=== PATIENT | female | born 1945 | race Caucasian/White ===

== ENCOUNTER → 2020-10-15 | Outpatient (CLI) | payer OTHER, BC ==
[~2020-10-15] MED LIST: ASA81BEC PO; CARDIZEM120 MG PO; COZAAR100 MG PO; HYDROCHLOROTH12.5 M1 PO; LIPITOR 40 MG T40 M1 PO; OXTELLAR XR150 MG PO; OXTELLAR XR300 MG PO; PLAVIX 75 MG TA75 MG PO; TRILEPTAL150 MG PO; ZYRTEC10 M5 PO
== END ==
LOC: SJCVCIMAG 09:31
PROVIDERS: ATTEND Internal Medicine Cardiovascular Disease
DX: I08.8 Other rheumatic multiple valve diseases (principal); I11.9 Hypertensive heart disease without heart failure; R94.31 Abnormal electrocardiogram [ECG] [EKG]; R00.1 Bradycardia, unspecified; R09.89 Other specified symptoms and signs involving the circulatory and respiratory systems; E78.00 Pure hypercholesterolemia, unspecified; Z79.82 Long term (current) use of aspirin; Z79.899 Other long term (current) drug therapy; Z87.891 Personal history of nicotine dependence; Z86.69 Personal history of other diseases of the nervous system and sense organs

== ENCOUNTER → 2020-10-23 | Outpatient (CLI) | payer OTHER, BC | LOC: SJCVCIMAG 09:07 | PROVIDERS: ATTEND Internal Medicine | DX: I65.23 Occlusion and stenosis of bilateral carotid arteries (principal); I73.9 Peripheral vascular disease, unspecified; E78.2 Mixed hyperlipidemia; I10 Essential (primary) hypertension; E78.00 Pure hypercholesterolemia, unspecified; R09.89 Other specified symptoms and signs involving the circulatory and respiratory systems; I35.0 Nonrheumatic aortic (valve) stenosis; I77.9 Disorder of arteries and arterioles, unspecified; Z79.82 Long term (current) use of aspirin; Z79.899 Other long term (current) drug therapy; Z87.891 Personal history of nicotine dependence ==

== ENCOUNTER → 2020-10-27 | Outpatient (CLI) | payer OTHER, BC | LOC: SJCVC 08:53 | PROVIDERS: ATTEND Nuclear Medicine Nuclear Cardiology | DX: I77.9 Disorder of arteries and arterioles, unspecified (principal); E78.00 Pure hypercholesterolemia, unspecified; I10 Essential (primary) hypertension; I35.0 Nonrheumatic aortic (valve) stenosis; E78.5 Hyperlipidemia, unspecified; Z79.82 Long term (current) use of aspirin; Z79.899 Other long term (current) drug therapy ==

== ENCOUNTER 2020-10-29 10:49 | Observation (INO) | payer OTHER, BC ==
[~2020-10-29] VITALS: Ht 167.6 cm; Wt 78.5 kg
[2020-10-29 11:42] VITALS: BP 167/65
[2020-10-29 12:09] LABS: HEMOGLOBIN 14.2 gm/dL (12.0-15.0); MCH 30.3 pg (26.0-34.0); MCHC 33.1 g/dL (28.0-37.0); MCV 91.5 fL (80.0-100.0); RBC 4.7 mil/uL (4.20-5.00); RDW 13.1 % (10.5-14.5)
[2020-10-29] MEDS ORDERED: ASA81BEC PO (12:10)
[2020-10-29] MEDS ORDERED: LIPITOR 40 MG T40 M1 PO (12:10)
[2020-10-29] MEDS ORDERED: ZYRTEC10 M5 PO (12:14)
[2020-10-29] MEDS ORDERED: CARDIZEM120 MG PO (12:15)
[2020-10-29] MEDS ORDERED: HYDROCHLOROTH12.5 M1 PO (12:16)
[2020-10-29] MEDS ORDERED: COZAAR100 MG PO (12:17)
[2020-10-29 12:18] LABS: CALCIUM 9.1 mg/dL (8.5-10.1); CREATININE 0.8 mg/dL (0.6-1.0); POTASSIUM 3.9 mmol/L (3.5-5.1)
[2020-10-29] MEDS ORDERED: TRILEPTAL150 MG PO (12:27)
[2020-10-29] MEDS ORDERED: OXTELLAR XR300 MG PO ×2 (12:28→12:30)
[2020-10-29] MEDS ORDERED: OXTELLAR XR150 MG PO (12:29)
[2020-10-29 15:55] LABS: ABSOLUTE NEUTROPHILS 5.4 thou/uL (1.4-8.2); BASOPHILS 0.6 % (0.0-2.0); EOSINOPHILS 2.1 % (0.0-3.0); HEMATOCRIT 38.6 % (37.0-47.0); HEMOGLOBIN 12.9 gm/dL (12.0-15.0); LYMPHOCYTES 17.7 % (24.0-44.0); MCH 30.5 pg (26.0-34.0); MCHC 33.3 g/dL (28.0-37.0); MCV 91.6 fL (80.0-100.0); MONOCYTES 6.2 % (1.0-8.0); PLATELET COUNT 184 thou/uL (150-400); POLYS 73.4 % (36.0-66.0); RBC 4.22 mil/uL (4.20-5.00); RDW 13.3 % (10.5-14.5); WBC 7.4 thou/uL (4.0-11.0)
[2020-10-29 16:10] LABS: ALBUMIN 3.2 g/dL (3.4-5.0); CREATININE 0.7 mg/dL (0.6-1.0); POTASSIUM 3.8 mmol/L (3.5-5.1); TOTAL BILIRUBIN 0.5 mg/dL (0.2-1.0); TOTAL PROTEIN 6.3 g/dL (6.4-8.2)
[2020-10-29 16:12] LABS: APTT 27.2 Seconds (24.5-32.8); PROTIME 10.9 Seconds (9.3-11.4)
--- NOTE | 2020-10-29 16:27 | NUR ---
PATIENT IN CCU FROM [employer] AT 1620 ACCOMPANIED BY MONTSERRAT COLLINS. ALERT AND ORIENTED AND VITALS STABLE, DENIES PAIN. PULSES INTACT AND RT. GROIN DRESSING C/D/I. APPOINTMENT CARD FOR DR. COREY GIVEN TO PATIENT AND AT THE BEDSIDE. PATIENT ON OBSERVATION FOR 2HRS THEN WILL BE DC'D HOME PER DR. BARRETO. PATIENT DENIES ANY CONCERNS AT THIS TIME. WILL CONTINUE TO MONITOR.
[2020-10-29 16:30] VITALS: BP 122/54
[2020-10-29 16:45] VITALS: BP 128/49
[2020-10-29] MEDS ORDERED: PLAVIX 75 MG TA75 MG PO (17:09)
[2020-10-29 17:46] VITALS: BP 1855/70
[2020-10-29 17:54] VITALS: BP 154/79
[2020-10-29 18:45] LABS: URINE BILIRUBIN NEGATIVE (Negative); URINE BLOOD NEGATIVE (Negative); URINE CLARITY CLEAR; URINE COLOR YELLOW; URINE GLUCOSE-RANDOM* NEGATIVE (Negative); URINE KETONES NEGATIVE (Negative); URINE LEUKOCYTES-REFLEX NEGATIVE (Negative); URINE NITRITE-REFLEX NEGATIVE (Negative); URINE PROTEIN (DIPSTICK) NEGATIVE (Negative); URINE SPECIFIC GRAVITY <= 1.005 (1.005-1.035); URINE UROBILINOGEN 0.2 E.U./dl (0.2-1.0)
--- NOTE | 2020-10-29 18:47 | NUR ---
PATIENT COMPLETED BEDREST AT 1815, GROIN SITE/DRESSING INTACT AND NO HEMATOMA NOTED. CHEST XRAY COMPLETED AND UA AND MRSA SWAB SENT TO LAB PER ORDERS. INSTRUCTIONS GIVEN TO PATIENT AND ON SIGN AND SYMPTOMS TO REPORT TO MD REGARDING GROIN SITE AND ALL QNS ANSWERED. IV DC'D AND PATIENT DISCHARGED OFF OBS AND TAKEN TO CAR PER W/C BY NURSING STAFF.
--- NOTE | 2020-10-30 14:48 | CATHLAB ---
[facility] [place] [address] [place] [address] INVASIVE PROCEDURE REPORT Name: LISA JOHNSON Room #: 218-P [facility] Chris MToniRToni#: [id number] Admission: 10/29/20 Attend Phys: Luis Eduardo Moe MD Discharge: 10/29/20 Date of : 43 Report #: [id number] THIS REPORT FOR: cc: Hayden Meredith MD, Neal A. MD Mancuso, Gerald M. MD [facility] ~ APPROVED REPORT Study performed: 10/29/2020 15:05:01 Patient Details Patient Status: Out-Patient Room #: The patient is a 75 year-old female Event Personnel Luis Eduardo Moe Radiologist, Arcadio Howard Molder Sweep, Zaid Evans RN, Rebecca Jacobson RTR, MIGNON Zamora, Geovanna Rapp Monitor Procedures Performed Left Heart Cath w/or w/o Coronaries [id number] [facility] [address] Initial Mod Sed Same Phys/QHP Gr5y [id number] Indication Chest pain Procedure Narrative A PINNACLE 6FR Sheath #[id number] sheath was inserted into the RFA^. Coronary angiography was performed using coronary diagnostic catheters. The right coronary system was accessed and visualized with a JR4 catheter. The left coronary system was accessed and visualized with a JL4 catheter. The left ventricle was accessed and visualized with a STR PIG catheter. The patient tolerated the procedure well and there were no complications associated with the procedure. There was no hematoma. Intraoperative Conscious Sedation Sedation start time: 1537 Case end Time: 1601 Fentanyl 100 mcg Versed 1 mg Fluoro Time: 9.60 minutes Dose: DAP 53765.50 cGycm2 473 mGy Contrast Type and Amount: Omnipaque 225 ml [facility] [place] [address] [place] [address] INVASIVE PROCEDURE REPORT Name: ALEXLISA KWESI Room #: 218-P [facility]#: [id number] Admission: 10/29/20 Attend Phys: Luis Eduardo Moe, Discharge: 10/29/20 Date of : 43 Report #: [id number] Hemodynamics The aortic pressure is 181/69 mmHg with a mean of 112 mmHg. The left ventricular pressure is 196/10 mmHg with a mean of mmHg. The left ventricular end diastolic pressure is 23 mmHg. Conclusion #1. Normal left jugular size and systolic function EF 60%. #2 left main free of disease giving rise to LAD and circumflex. #3 LAD is widely patent with a smaller diffuse disease disease vessel at the apex. #4 circumflex OM nondominant no occlusive disease. #4 dominant right coronary artery with mild mid vessel calcification and a 30 to 40% eccentric lesion. No occlusive disease. Recommendations and plan: Continue aggressive risk factor modification. No indication for coronary intervention. <ELECTRONICALLY SIGNED> By: Arcadio Howard MD, FACC 10/30/20 1447 1447 1447 Arcadio Howard MD, [facility] /INF
== END 2020-10-29 18:45 | disposition home or self-care (01) ==
LOC: CATH 10:49 → 2N 16:27 → CATH 16:36 → 2N 16:37
PROVIDERS: Surgery Vascular Surgery; ADMIT Nuclear Medicine Nuclear Cardiology; ATTEND Nuclear Medicine Nuclear Cardiology
DX: I25.10 Atherosclerotic heart disease of native coronary artery without angina pectoris (principal); I77.9 Disorder of arteries and arterioles, unspecified; E78.00 Pure hypercholesterolemia, unspecified; I34.0 Nonrheumatic mitral (valve) insufficiency; E78.5 Hyperlipidemia, unspecified; I70.1 Atherosclerosis of renal artery; G40.909 Epilepsy, unspecified, not intractable, without status epilepticus; Z87.891 Personal history of nicotine dependence; Z79.899 Other long term (current) drug therapy; Z79.82 Long term (current) use of aspirin

== ENCOUNTER → 2020-11-11 | Outpatient (CLI) | payer OTHER, BC | LOC: SJCVC 09:16 | PROVIDERS: ATTEND Internal Medicine | DX: R00.1 Bradycardia, unspecified (principal); I35.0 Nonrheumatic aortic (valve) stenosis; E78.5 Hyperlipidemia, unspecified; I10 Essential (primary) hypertension; G40.909 Epilepsy, unspecified, not intractable, without status epilepticus; I73.9 Peripheral vascular disease, unspecified; E78.00 Pure hypercholesterolemia, unspecified; Z87.891 Personal history of nicotine dependence; Z79.82 Long term (current) use of aspirin; Z79.899 Other long term (current) drug therapy ==

== ENCOUNTER → 2020-11-24 | Outpatient (CLI) | payer OTHER, BC ==
[~2020-11-24] MED LIST changes: +MULTI VITAMIN1 EACH PO; +TRILEPTAL300 MG PO
== END ==
LOC: PAC 09:00
PROVIDERS: ATTEND Family Medicine
DX: Z01.812 Encounter for preprocedural laboratory examination (principal); Z20.822 Contact with and (suspected) exposure to COVID-19

== ENCOUNTER 2020-11-27 06:10 | Observation (INO) | payer OTHER, BC ==
--- NOTE | 2020-11-24 16:25 | EKG ---
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 Operator: DARA : 1945 Requested By: Marcelo Juárez Order Number: [id number] MD: Anam Lutz Measurements Intervals [place] Rate: 65 P: 59 MI: 167 QRS: 2 QRSD: 87 T: 55 QT: 420 QTc: 437 Interpretive Statements Sinus rhythm Abnormal R-wave progression, early transition Baseline wander in lead(s) V6 No previous ECG available for comparison Electronically Signed On 11-24-2020 16:25:41 CDT by Anam Lutz [email or web address] <ELECTRONICALLY SIGNED> By: Anam Lutz MD, [facility] 11/24/20 1625 1054 1054 Anam Lutz MD, FACC /EPI
[~2020-11-27] VITALS: Ht 160 cm; Wt 78.7 kg
[2020-11-27 07:46] VITALS: BP 182/73
[2020-11-27 14:34] VITALS: BP 138/59
[2020-11-27 14:45] VITALS: BP 141/58
--- NOTE | 2020-11-27 15:00 | NUR ---
Patient arrived to ICU from PACU. Groin was oozing blood, pressure held, dressing changed. Pressure was held for 20 minutes. Bleeding ceased at 1454. Dressing clean, dry, and intact. Patient denied pain.
--- NOTE | 2020-11-27 18:45 | NUR ---
Patient progressing towards plan of care as evidenced by no further bleeding at groin site. Patient does remain on cardene gtt per clincian clinical parameters. She will get oral medications tonight. She denies pain. Plan of care is to wean her off cardene and continue to monitor groin site, incision site, assessments, and vital signs.
[2020-11-28 04:52] LABS: HEMATOCRIT 37.2 % (37.0-47.0); HEMOGLOBIN 12.5 gm/dL (12.0-15.0); MCH 30.8 pg (26.0-34.0); MCHC 33.7 g/dL (28.0-37.0); MCV 91.5 fL (80.0-100.0); RBC 4.06 mil/uL (4.20-5.00); RDW 13.2 % (10.5-14.5); WBC 11.3 thou/uL (4.0-11.0)
[2020-11-28 05:00] LABS: CALCIUM 8.4 mg/dL (8.5-10.1); CREATININE 0.8 mg/dL (0.6-1.0); POTASSIUM 3.9 mmol/L (3.5-5.1)
--- NOTE | 2020-11-28 10:25 | NUR ---
PT IS PROGRESSING TOWARDS DISCHARGE, BRUITS HEARD BILATERALLY, THE GROIN SITE DOES NOT APPEAR TO BE WORSENING S/P ACCESS. L NECK, L GROIN BOTH HAVE BRUISINGS PRESENT AND WILL FOR SOMETIME. PT DOES STATE TENDERNESS BUT DOES NOT SAY ITS REMARKABLY DIFFERENT SINCE YESTERDAY. IS AT BEDSIDE. PT WAS TRANSPORTED TO THE RECLINER WITH ONE PERSON ASSIST AND TOLERATED FAIRLY. PLAN IS TO DC THE ART LINE/GAN CATH TODAY IN PREP FOR THE DICHARGE
[2020-11-28 12:20] VITALS: BP 126/60
== END 2020-11-28 12:50 | disposition home or self-care (01) ==
LOC: TBA 06:10 → PRE 08:35 → ICU 15:13
PROVIDERS: Physician Assistant; ADMIT Surgery Vascular Surgery; ATTEND Surgery Vascular Surgery
DX: I65.21 Occlusion and stenosis of right carotid artery (principal); I25.10 Atherosclerotic heart disease of native coronary artery without angina pectoris; Z20.822 Contact with and (suspected) exposure to COVID-19; I10 Essential (primary) hypertension; E78.5 Hyperlipidemia, unspecified; I35.0 Nonrheumatic aortic (valve) stenosis; G40.909 Epilepsy, unspecified, not intractable, without status epilepticus; H26.9 Unspecified cataract; Z90.710 Acquired absence of both cervix and uterus; Z98.890 Other specified postprocedural states
CPT/HCPCS: 47375; 50010; 50101; 50386; 50417; 51301; 52287; 54118; 56524; 56526; 56528; 62110; 62900; 65020; 70005

== ENCOUNTER → 2020-12-09 | Outpatient (CLI) | payer OTHER, BC | LOC: SJCVC 10:50 | PROVIDERS: ATTEND Internal Medicine | DX: E78.2 Mixed hyperlipidemia (principal); I10 Essential (primary) hypertension; I73.9 Peripheral vascular disease, unspecified; I65.23 Occlusion and stenosis of bilateral carotid arteries; E78.00 Pure hypercholesterolemia, unspecified; Z90.710 Acquired absence of both cervix and uterus; Z79.82 Long term (current) use of aspirin; Z79.899 Other long term (current) drug therapy; Z87.891 Personal history of nicotine dependence; Z82.49 Family history of ischemic heart disease and other diseases of the circulatory system ==

== ENCOUNTER → 2021-01-01 | Outpatient (CLI) | payer OTHER, BC ==
[~2021-01-01] MED LIST changes: +CARDIZEM CD120 MG PO; -CARDIZEM120 MG PO; +ROSUVASTATIN CA20 MG PO
== END ==
LOC: SJCVCIMAG 08:49
PROVIDERS: ATTEND Nuclear Medicine Nuclear Cardiology
DX: I65.23 Occlusion and stenosis of bilateral carotid arteries (principal); I77.9 Disorder of arteries and arterioles, unspecified; I10 Essential (primary) hypertension; I35.0 Nonrheumatic aortic (valve) stenosis; E78.00 Pure hypercholesterolemia, unspecified; E78.5 Hyperlipidemia, unspecified; Z90.710 Acquired absence of both cervix and uterus; Z79.82 Long term (current) use of aspirin; Z79.899 Other long term (current) drug therapy; Z87.891 Personal history of nicotine dependence; Z82.49 Family history of ischemic heart disease and other diseases of the circulatory system

== ENCOUNTER → 2021-01-06 | Outpatient (CLI) | payer OTHER, BC ==
[2021-01-06 10:03] LABS: ABSOLUTE NEUTROPHILS 4.2 thou/uL (1.4-8.2); BASOPHILS 0.6 % (0.0-2.0); EOSINOPHILS 2.5 % (0.0-3.0); HEMATOCRIT 42.5 % (37.0-47.0); HEMOGLOBIN 14.6 gm/dL (12.0-15.0); LYMPHOCYTES 19.3 % (24.0-44.0); MCH 31.1 pg (26.0-34.0); MCHC 34.2 g/dL (28.0-37.0); MCV 90.9 fL (80.0-100.0); MONOCYTES 9.4 % (1.0-8.0); PLATELET COUNT 198 thou/uL (150-400); POLYS 68.2 % (36.0-66.0); RBC 4.68 mil/uL (4.20-5.00); WBC 6.1 thou/uL (4.0-11.0)
[2021-01-06 10:15] LABS: APTT 28.7 Seconds (24.5-32.8); INR 0.99; PROTIME 10.8 Seconds (10.5-12.1); URINE BILIRUBIN NEGATIVE (Negative); URINE BLOOD NEGATIVE (Negative); URINE CLARITY SL CLOUDY; URINE COLOR YELLOW; URINE GLUCOSE-RANDOM* NEGATIVE (Negative); URINE KETONES NEGATIVE (Negative); URINE LEUKOCYTES-REFLEX 3+ (Negative); URINE NITRITE-REFLEX NEGATIVE (Negative); URINE PROTEIN (DIPSTICK) NEGATIVE (Negative); URINE UROBILINOGEN 0.2 E.U./dl (0.2-1.0)
[2021-01-06 10:19] LABS: ALBUMIN 3.9 g/dL (3.4-5.0); CALCIUM 9.2 mg/dL (8.5-10.1); CREATININE 0.8 mg/dL (0.6-1.0); TOTAL BILIRUBIN 0.4 mg/dL (0.2-1.0); TOTAL PROTEIN 7.3 g/dL (6.4-8.2)
[2021-01-06 10:25] LABS: SQUAMOUS 4-10 Moderate /LPF (0-3)
[2021-01-06 10:26] LABS: CASTS None Seen /LPF (None Seen); CRYSTALS None Seen /LPF (None Seen); MUCUS 0-3 Light strn/LPF (None Seen)
[2021-01-06 10:29] LABS: BACTERIA-REFLEX 1-9 Few /HPF (None Seen); URINE RBC None Seen /HPF (NONE SEEN); URINE WBC-REFLEX 6-15 Few /HPF (0-5)
== END ==
LOC: PAC 08:42
PROVIDERS: ATTEND Surgery Vascular Surgery
DX: Z01.818 Encounter for other preprocedural examination (principal); I70.0 Atherosclerosis of aorta; J84.10 Pulmonary fibrosis, unspecified; I73.9 Peripheral vascular disease, unspecified; Z98.890 Other specified postprocedural states

== ENCOUNTER 2021-01-08 06:16 | Inpatient (IN) | payer OTHER, BC ==
[~2021-01-08] VITALS: Ht 162.6 cm; Wt 161.9 kg
[2021-01-08] VITALS (23 sets, daily range): BP systolic 103–172; BP diastolic 40–78
--- NOTE | 2021-01-08 12:27 | NUR ---
PT ARRIVED IN THE ICU AT 1130 FROM RECOVERY. PT ALERT AND ORIENTED X4. PT CONNECTED TO ICU MONITOR. PT HAD A TRANSCAROTID ARTERY REVASCULARIZATION SONE TODAY. RIGHT GROIN SITE IS CLEAN/DRY AND INTACT WITH NO SIGNS OF HEMATOMA AND BRUISING. LEFT NECK SITE IS CLEAN/DRY AND INTACT WITH NO SIGN OF HEMATOMA AND BRUISING. PT HAS A RIGHT RADIAL ART LINE. PT ON CARDENE GTT AT 5 MG/HR. AND DAUGHTER BOTH AT BEDSIDE AND WAS GIVEN ICU PHONE NUMBERS AND PT PRIVACY CODE. CONTINUE TO MONITOR.
[2021-01-09] VITALS (11 sets, daily range): BP systolic 99–130; BP diastolic 36–48
[2021-01-09 05:08] LABS: HEMATOCRIT 37.1 % (37.0-47.0); MCH 30.6 pg (26.0-34.0); MCHC 33.1 g/dL (28.0-37.0); MCV 92.3 fL (80.0-100.0); RBC 4.02 mil/uL (4.20-5.00); RDW 13.4 % (10.5-14.5); WBC 12.8 thou/uL (4.0-11.0)
[2021-01-09 05:17] LABS: HEMOGLOBIN 12.3 gm/dL (12.0-15.0)
[2021-01-09 05:36] LABS: CALCIUM 8.6 mg/dL (8.5-10.1); CREATININE 0.7 mg/dL (0.6-1.0)
--- NOTE | 2021-01-09 10:30 | NUR ---
ASSUMED CARE OF PT AT 0700, SHE IS PLEASANT AND UP IN THE CHAIR. DR. CARRERA AT BEDSIDE AT 0830, ORDERS TO D/C MALIK GIVEN DR. MASON AT BEDSIDE AT 0845, NO NEW ORDERS GIVEN PTS AT BEDSIDE AT 1000
--- NOTE | 2021-01-09 11:36 | O ---
[facility] [place] [address] [place] [address] OPERATIVE REPORT Name: LISA JOHNSON Room #: 248-P ADM IN M.R.#: [id number] Admission: 01/08/21 Attend Phys: Marcelo Juárez MD Discharge: Date of : 43 Report #: [id number] THIS REPORT FOR: cc: Hayden Meredith MD, Neal A. MD Forman,Marcelo Neal MD ~ DOC #: [id number] Marcelo Juárez MD DATE OF SERVICE: 01/08/2021 PREOPERATIVE DIAGNOSIS: Carotid artery disease, left internal carotid. POSTOPERATIVE DIAGNOSIS: Carotid artery disease, left internal carotid. OPERATION: Transcarotid arterial revascularization with intraoperative arteriograms. SURGEONS: Dr. Marcelo Juárez and Dr. Luis Eduardo Moe. MANAGER NON PROFIT: ARCHIE Marquez. ANESTHESIA: General. INDICATIONS: The patient is a 75-year-old, known to us, for carotid artery disease. The patient has a contralateral occluded carotid and a hemodynamically significant lesion in the left carotid that has increased in severity since last evaluation. The patient has not had stroke or transient ischemic attack, however. FINDINGS AND TECHNIQUE: After general anesthesia was established, an oblique left neck incision was made. The sternal and clavicular heads of the sternocleidomastoid were split and the common carotid artery was identified and controlled. Separately, the right femoral artery was identified with ultrasound and the vascular needle was placed followed by guidewire, and then using Seldinger technique, the introducer sheath was placed and finally, the venous component of the TCAR AV shunt was placed. 10,000 units of heparin were given and when ACT was satisfactory, the arterial needle was placed in the common carotid, followed by guidewire, and then once again using Seldinger technique, the arterial component of the TCAR AV shunt was placed. When the ACT was satisfactory, antegrade flow was stopped and good circulation was noted through the AV shunt. [facility] [address] [place] [address] OPERATIVE REPORT Name: LISA JOHNSON Room #: 248-P [facility] IN M.R.#: [id number] Admission: 01/08/21 Attend Phys: Marcelo Juárez MD Discharge: Date of : 43 Report #: [id number] Arteriogram was taken that showed the internal carotid lesion. Predilatation angioplasty was done with 4 x 30 balloon. When this was accomplished, an Enroute 8 x 30 stent was placed to treat the proximal carotid stenosis. The stent was deployed and then post-dilatation angioplasty was done using a 5 x 30 balloon. After waiting 2 minutes, an arteriogram was taken that showed good position of the stent with good correction of the stenosis. Antegrade flow was reestablished. The AV shunt was dismantled. The arterial component was removed and the pursestring suture was tied, and a second suture was placed for secure closure. The venous component of the shunt was removed and pressure was applied to the groin. Protamine was given to reverse the heparin. Hemostasis was ascertained. The wound was closed in layers and the patient was taken to the recovery area where her neurologic progress was monitored. All counts were reported as correct. Marcelo Juárez MD JF/PRE/IQB <ELECTRONICALLY SIGNED> By: Marcelo Juárez MD 01/09/21 1136 0841 0918 Marcelo Juárez MD /nt
--- NOTE | 2021-01-09 16:44 | NUR ---
PT TRANSFERED FROM ICU IN STABLE CONDITION. ALERT AND ORIENTED X3.DENIED HAVING PAIN OR DISCOMFORT. SB ON TELE 40'S TO 50'S. ASSYMPTOMATIC. PT ORIENTED TO THE ROOM AND THE CALL SYTEM. NO CONCERNS AT THIS TIME. PROGRESSING WELL TOWARDS DISCHARGE GOAL.
--- NOTE | 2021-01-10 04:44 | NUR ---
PT AMBULATING TO BATHROOM INDEPENDENTLY AND IS TOLERATING WELL. DENIES PAIN. RESTING COMFORTABLY. NO NEEDS VOICED. CALL LIGHT WITHIN REACH. FREQUENT OBSERVATION.
[2021-01-10 04:45] VITALS: BP 149/49
[2021-01-10 07:55] VITALS: BP 145/49
[2021-01-10 09:48] VITALS: BP 145/49
--- NOTE | 2021-01-10 10:08 | NUR ---
ASSESSMENT CHARTED. PT ALERT AND ORIENTED. SB ON TELE. DENIED HAVING PAIN OR DISCOMFORT. SURGICAL INCISION C/D/I. SEEN BY DR. CARRERA AND DR. COREY. ORDERS GIVEN TO DISCHARGE PT TO HOME. DISCHARGE INSTRUCTIONS GIVEN TO PT. PT VERBERLISED UNDERSTANDING.
== END 2021-01-10 10:36 | disposition home or self-care (01) | DRG 36 ==
LOC: TBA 06:16 → ICU 06:16 → TBA 13:28 → 2N 01-09 14:57
PROVIDERS: Physician Assistant; ADMIT Surgery Vascular Surgery; ATTEND Surgery Vascular Surgery
PROC: 037L3DZ Dilation of Left Internal Carotid Artery with Intraluminal Device, Percutaneous Approach (ICD-10-PCS; principal; 2021-01-08)
DX: I65.23 Occlusion and stenosis of bilateral carotid arteries (principal); I10 Essential (primary) hypertension; E78.00 Pure hypercholesterolemia, unspecified; I25.10 Atherosclerotic heart disease of native coronary artery without angina pectoris; I35.0 Nonrheumatic aortic (valve) stenosis; E78.5 Hyperlipidemia, unspecified
CPT/HCPCS: 10078; 10797; 47375; 48889; 50010; 50101; 50386; 50417; 50455; 52287; 54118; 56524; 56526; 56527; 56528; 62110; 62900; 65020; 70005

== ENCOUNTER → 2021-01-20 | Outpatient (CLI) | payer OTHER, BC | LOC: SJCVC 09:56 | PROVIDERS: ATTEND Internal Medicine | DX: E78.2 Mixed hyperlipidemia (principal); I10 Essential (primary) hypertension; I35.0 Nonrheumatic aortic (valve) stenosis; I73.9 Peripheral vascular disease, unspecified; I65.23 Occlusion and stenosis of bilateral carotid arteries; R09.89 Other specified symptoms and signs involving the circulatory and respiratory systems; E78.00 Pure hypercholesterolemia, unspecified; E78.5 Hyperlipidemia, unspecified; Z95.5 Presence of coronary angioplasty implant and graft; Z79.82 Long term (current) use of aspirin; Z79.899 Other long term (current) drug therapy; Z87.891 Personal history of nicotine dependence; Z82.49 Family history of ischemic heart disease and other diseases of the circulatory system ==

== ENCOUNTER → 2021-02-09 | Outpatient (CLI) | payer OTHER, BC | LOC: SJCVCIMAG 14:55 | PROVIDERS: ATTEND Nuclear Medicine Nuclear Cardiology | DX: I65.21 Occlusion and stenosis of right carotid artery (principal); I77.9 Disorder of arteries and arterioles, unspecified; I10 Essential (primary) hypertension; E78.00 Pure hypercholesterolemia, unspecified; E78.5 Hyperlipidemia, unspecified; Z90.710 Acquired absence of both cervix and uterus; Z95.5 Presence of coronary angioplasty implant and graft; Z79.82 Long term (current) use of aspirin; Z79.899 Other long term (current) drug therapy; Z87.891 Personal history of nicotine dependence; Z82.49 Family history of ischemic heart disease and other diseases of the circulatory system ==

== ENCOUNTER → 2021-04-07 | Outpatient (CLI) | payer OTHER, BC | LOC: SJCVC 10:46 | PROVIDERS: ATTEND Internal Medicine | DX: I10 Essential (primary) hypertension (principal); R09.89 Other specified symptoms and signs involving the circulatory and respiratory systems; E78.00 Pure hypercholesterolemia, unspecified; Z87.891 Personal history of nicotine dependence; Z79.899 Other long term (current) drug therapy ==

== ENCOUNTER → 2021-05-05 | Outpatient (CLI) | payer OTHER, BC | LOC: SJCVC 10:20 | PROVIDERS: ATTEND Internal Medicine | DX: I10 Essential (primary) hypertension (principal); E78.5 Hyperlipidemia, unspecified; Z79.899 Other long term (current) drug therapy; Z87.891 Personal history of nicotine dependence ==

== ENCOUNTER → 2021-08-18 | Outpatient (CLI) | payer OTHER, BC | LOC: SJCVCIMAG 06:40 | PROVIDERS: ATTEND Nuclear Medicine Nuclear Cardiology | DX: I65.21 Occlusion and stenosis of right carotid artery (principal); I77.9 Disorder of arteries and arterioles, unspecified; I10 Essential (primary) hypertension; I35.0 Nonrheumatic aortic (valve) stenosis; E78.00 Pure hypercholesterolemia, unspecified; E78.5 Hyperlipidemia, unspecified; Z87.891 Personal history of nicotine dependence; Z79.899 Other long term (current) drug therapy; Z82.49 Family history of ischemic heart disease and other diseases of the circulatory system; Z88.8 Allergy status to other drugs, medicaments and biological substances ==

== ENCOUNTER → 2021-09-02 | Outpatient (CLI) | payer OTHER, BC | LOC: SJCVC 11:20 | PROVIDERS: ATTEND Internal Medicine | DX: I10 Essential (primary) hypertension (principal); E78.00 Pure hypercholesterolemia, unspecified; R09.89 Other specified symptoms and signs involving the circulatory and respiratory systems ==

== ENCOUNTER → 2021-09-28 | Outpatient (CLI) | payer OTHER, BC | LOC: SJCVCIMAG 09-24 15:32 | PROVIDERS: ATTEND Internal Medicine | DX: I08.8 Other rheumatic multiple valve diseases (principal); R94.31 Abnormal electrocardiogram [ECG] [EKG]; I10 Essential (primary) hypertension; I65.29 Occlusion and stenosis of unspecified carotid artery; E78.5 Hyperlipidemia, unspecified; Z87.891 Personal history of nicotine dependence; Z79.899 Other long term (current) drug therapy; Z82.49 Family history of ischemic heart disease and other diseases of the circulatory system; Z88.8 Allergy status to other drugs, medicaments and biological substances ==